=== PATIENT | female | born 2000 | race African-American/Black ===

== ENCOUNTER 2019-10-25 10:21 | Emergency (ER) | payer BC ==
[2019-10-25 10:30] VITALS: BP 133/75; PULSE 77; TEMP 98.3; BMI 38.0
[2019-10-25] MEDS ORDERED: SODIUM CHLORIDE 1,000 ML IV STA (11:18)
[2019-10-25] MEDS ORDERED: METOCLOPRAMIDE HCL INJECTION 10 MG/2 ML VIAL IVPB ONE (11:18)
[2019-10-25] MEDS ORDERED: ACETAMINOPHEN 1000 MG/100 ML VIAL (NON FORMULARY) IVPB ONE (11:18)
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
[2019-10-25] MEDS ORDERED: METOCLOPRAMIDE HCL INJECTION 10 MG/2 ML VIAL ONE (11:32)
[2019-10-25] MEDS ORDERED: ACETAMINOPHEN INJECTION 100 ML IVPB ONE (11:32)
== END 2019-10-25 13:56 | disposition home or self-care (01) ==
LOC: JERFT 10:21
PROC: 3E0333Z Introduction of Anti-inflammatory into Peripheral Vein, Percutaneous Approach (ICD-10-PCS; principal; 2019-10-25)
PROC: 3E033GC Introduction of Other Therapeutic Substance into Peripheral Vein, Percutaneous Approach (ICD-10-PCS; 2019-10-25)
PROC: 3E0337Z Introduction of Electrolytic and Water Balance Substance into Peripheral Vein, Percutaneous Approach (ICD-10-PCS; 2019-10-25)
DX: R51 Headache (principal); R21 Rash and other nonspecific skin eruption
CPT/HCPCS: 99284-25; J0131

== ENCOUNTER 2020-04-10 12:35 | Emergency (ER) | payer BC ==
[2020-04-10 13:05] VITALS: TEMP 97.8; BMI 34.9
[2020-04-10] MEDS ORDERED: ACETAMINOPHEN 1000 MG/100 ML VIAL (NON FORMULARY) IVPB ONE (13:38)
[2020-04-10] MEDS ORDERED: METOCLOPRAMIDE HCL INJECTION 10 MG/2 ML VIAL IVPB ONE (13:38)
[2020-04-10] MEDS ORDERED: SODIUM CHLORIDE 1,000 ML IV STA (13:38)
[2020-04-10] MEDS ORDERED: MECLIZINE HCL 25 MG TABLET (FP) PO ONE (13:39)
[2020-04-10] MEDS ORDERED: METOCLOPRAMIDE HCL INJECTION 10 MG/2 ML VIAL ONE (13:42)
[2020-04-10] MEDS ORDERED: ACETAMINOPHEN INJECTION 100 ML IVPB ONE (13:42)
[2020-04-10] MEDS ORDERED: MECLIZINE HCL 25 MG TABLET (FP) ONE (14:50)
[2020-04-10 16:23] VITALS: BP 128/70; PULSE 75
== END 2020-04-10 16:22 | disposition home or self-care (01) ==
LOC: JER 12:35
PROC: 3E0333Z Introduction of Anti-inflammatory into Peripheral Vein, Percutaneous Approach (ICD-10-PCS; principal; 2020-04-10)
PROC: 3E033GC Introduction of Other Therapeutic Substance into Peripheral Vein, Percutaneous Approach (ICD-10-PCS; 2020-04-10)
PROC: 3E033GC Introduction of Other Therapeutic Substance into Peripheral Vein, Percutaneous Approach (ICD-10-PCS; 2020-04-10)
PROC: 3E0337Z Introduction of Electrolytic and Water Balance Substance into Peripheral Vein, Percutaneous Approach (ICD-10-PCS; 2020-04-10)
DX: R51.9 Headache, unspecified (principal)
CPT/HCPCS: 99284-25; J0131

== ENCOUNTER 2020-10-08 12:44 | Emergency (ER) | payer BC, OTHER ==
[2020-10-08 12:52] VITALS: BP 122/70; PULSE 79; TEMP 99.3; BMI 36.5
[2020-10-08] MEDS ORDERED: METOCLOPRAMIDE HCL INJECTION 10 MG/2 ML VIAL IVPB ONE (13:53)
[2020-10-08] MEDS ORDERED: SODIUM CHLORIDE 1,000 ML IV STA (13:53)
[2020-10-08] MEDS ORDERED: KETOROLAC TROMETHAMINE 15 MG/ML VIAL IVPUSH ONE (13:53)
[2020-10-08] MEDS ORDERED: KETOROLAC TROMETHAMINE 15 MG/ML VIAL ONE (14:12)
[2020-10-08] MEDS ORDERED: METOCLOPRAMIDE HCL INJECTION 10 MG/2 ML VIAL ONE (14:12)
[2020-10-08] MEDS ORDERED: ACETAMINOPHEN 1000 MG/100 ML VIAL IVPB ONE (16:53)
[2020-10-08] MEDS ORDERED: DEXAMETHASONE SOD PHOSPHATE 10 MG/1 ML VIAL IVPUSH ONE (16:53)
[2020-10-08] MEDS ORDERED: DEXAMETHASONE SOD PHOSPHATE 10 MG/1 ML VIAL ONE (17:13)
[2020-10-08] MEDS ORDERED: ACETAMINOPHEN INJECTION 100 ML IVPB ONE (17:13)
== END 2020-10-08 18:55 | disposition home or self-care (01) ==
LOC: JER 12:44
PROC: 3E0333Z Introduction of Anti-inflammatory into Peripheral Vein, Percutaneous Approach (ICD-10-PCS; principal; 2020-10-08)
PROC: 3E033GC Introduction of Other Therapeutic Substance into Peripheral Vein, Percutaneous Approach (ICD-10-PCS; 2020-10-08)
PROC: 3E033GC Introduction of Other Therapeutic Substance into Peripheral Vein, Percutaneous Approach (ICD-10-PCS; 2020-10-08)
PROC: 3E0333Z Introduction of Anti-inflammatory into Peripheral Vein, Percutaneous Approach (ICD-10-PCS; 2020-10-08)
PROC: 3E033GC Introduction of Other Therapeutic Substance into Peripheral Vein, Percutaneous Approach (ICD-10-PCS; 2020-10-08)
PROC: 3E0337Z Introduction of Electrolytic and Water Balance Substance into Peripheral Vein, Percutaneous Approach (ICD-10-PCS; 2020-10-08)
DX: G43.909 Migraine, unspecified, not intractable, without status migrainosus (principal)
CPT/HCPCS: 70450-TC; 96361; 96374; 96375; 99284-25; J0131; J1100

== ENCOUNTER 2021-03-27 20:27 | Emergency (ER) | payer OTHER ==
[2021-03-27 20:43] VITALS: BP 143/58; PULSE 102; TEMP 98.1; BMI 36.5
[2021-03-29 20:07] LABS: SARS-CoV-2 NAA Not Detected (Not Detected)
== END 2021-03-27 21:47 | disposition home or self-care (01) ==
LOC: JER 20:27
DX: J11.1 Influenza due to unidentified influenza virus with other respiratory manifestations (principal); Z11.52 Encounter for screening for COVID-19
CPT/HCPCS: 99283-25; C9803; U0003; U0005

== ENCOUNTER 2022-05-09 18:30 | Emergency (ER) | payer OTHER ==
[2022-05-09 18:36] VITALS: BP 128/82; PULSE 90; RESP 18; TEMP 98.4; BMI 38.0
== END 2022-05-09 21:06 | disposition home or self-care (01) ==
LOC: JER 18:30 → JERFT 18:30
PROC: 0H98XZZ Drainage of Buttock Skin, External Approach (ICD-10-PCS; principal; 2022-05-09)
DX: O99.891 Other specified diseases and conditions complicating pregnancy (principal); L02.31 Cutaneous abscess of buttock; Z3A.36 36 weeks gestation of pregnancy
CPT/HCPCS: 99282-25

== ENCOUNTER 2022-05-31 12:35 | Inpatient (IN) | payer OTHER ==
[2022-05-31 14:13] VITALS: BMI 43.7
[2022-05-31 14:25] LABS: BASO % 0.1 % (0-2.0); EOS % 0.2 % (0-4.5); HEMATOCRIT 38.9 % (32.4-45.2); HEMOGLOBIN 13.2 GM/dL (10.7-15.3); LYMPH % 12.1 % (8-40); MCH 29.8 pg (25.7-33.7); MEAN CELL VOLUME 87.9 fl (80-96); MEAN PLT VOLUME 8.2 fl (7.5-11.1); MONO % 5.3 % (3.8-10.2); NEUT % 82.3 % (42.8-82.8); PLATELET COUNT 311 10^3/uL (134-434); RBC 4.43 M/mm3 (3.60-5.2); RDW 14.2 % (11.6-15.6); WHITE BLOOD COUNT 13.9 K/mm3 (4.0-10.0)
[2022-05-31 14:34] LABS: INR 0.97 (0.83-1.09); PROTHROMBIN TIME (PATIENT) 11.3 SEC (9.7-13.0)
[2022-05-31 14:36] LABS: ACTIVATED PTT 28.5 SECONDS (25.2-36.5)
[2022-05-31 14:48] LABS: CALCIUM 9.3 mg/dL (8.5-10.1)
[2022-05-31 14:52] LABS: BLOOD UREA NITROGEN 11.4 mg/dL (7-18); CREATININE 0.7 mg/dL (0.55-1.3)
[2022-05-31] MEDS ORDERED: ELECTROLYTE-148 SOLN 1,000 ML IV SCH (15:00)
[2022-05-31] MEDS ORDERED: OXYTOCIN 30 UNITS in 0.9% NS 30 UNIT/500 ML INFUS.BAG IVPB ONE (16:30)
[2022-05-31] MEDS ORDERED: OXYTOCIN 30 UNITS in 0.9% NS 30 UNIT/500 ML INFUS.BAG IVPB SCH (17:45)
[2022-05-31] MEDS ORDERED: FENTANYL/BUPIVACAINE/NS/PF - PCEA - 50 ML DISP.SYRIN EP ONE (19:25)
[2022-05-31] MEDS ORDERED: NALOXONE HCL 0.4 MG/ML VIAL IVPUSH PRN (20:30)
[2022-05-31] MEDS ORDERED: FENTANYL/BUPIVACAINE/NS/PF - PCEA - 50 ML DISP.SYRIN EP SCH (20:30)
[2022-05-31] MEDS ORDERED: ELECTROLYTE-148 SOLN 500 ML IV ONE (23:45)
[2022-06-01] MEDS ORDERED: LIDO 2%/EPI 1:200000 PRESRVFRE (20 ML SDVIAL) ONE (00:01)
[2022-06-01] MEDS ORDERED: OXYTOCIN 30 UNITS in 0.9% NS 30 UNIT/500 ML INFUS.BAG IVPB ONE (00:01)
[2022-06-01] MEDS ORDERED: FENTANYL CITRATE/PF 50 MCG/ML VIAL ONE (00:02)
[2022-06-01] MEDS ORDERED: ONDANSETRON 4 MG/2 ML VIAL ONE (00:02)
[2022-06-01] MEDS ORDERED: ceFAZolin SODIUM 1 GM VIAL ONE (00:02)
[2022-06-01] MEDS ORDERED: METOCLOPRAMIDE HCL INJECTION 10 MG/2 ML VIAL ONE (00:02)
[2022-06-01] MEDS ORDERED: ELECTROLYTE-148 SOLN 1,000 ML IV SCH (00:15)
[2022-06-01] MEDS ORDERED: DEXAMETHASONE SOD PHOSPHATE 4 MG/1 ML VIAL ONE (00:34)
[2022-06-01] MEDS ORDERED: morphine SULFATE/PF 1 MG/2 ML (2cc Syringe - QUVA) EP ONE (00:40)
[2022-06-01] MEDS ORDERED: KETOROLAC TROMETHAMINE 30 MG/1 ML VIAL ONE (00:52)
[2022-06-01] MEDS ORDERED: ACETAMINOPHEN 325 MG TABLET (FP) PO PRN (01:10)
[2022-06-01] MEDS ORDERED: METHYLERGONOVINE MALEATE 0.2 MG/1 ML AMP IM PRN (01:10)
[2022-06-01] MEDS ORDERED: IBUPROFEN 800 MG/8 ML IJ IVPB PRN (01:10)
[2022-06-01] MEDS ORDERED: OXYTOCIN 20 UNITS in 0.9% NS 20 UNIT/1,000 ML INFUS.BAG IV SCH (01:15)
[2022-06-01] MEDS ORDERED: ONDANSETRON 4 MG/2 ML VIAL IVPUSH PRN (01:32)
[2022-06-01] MEDS ORDERED: OXYTOCIN 20 UNITS in 0.9% NS 20 UNIT/1,000 ML INFUS.BAG IV ONE (02:59)
[2022-06-01] MEDS: FERROUS SO4 325 MG TABLET (FP) PO SCH ×2 (10:59→21:02)
[2022-06-01] MEDS: PRENATAL VITAMINS W/ FOLIC ACID TABLET (FP) PO SCH (10:59)
[2022-06-01 19:56] VITALS: RESP 18
[2022-06-01] MEDS: SENNOSIDES/DOCUSATE COMBO (SENNA PLUS) TABLET (UD) PO PRN (21:02)
[2022-06-01] MEDS: SIMETHICONE 80 MG TAB.CHEW (FP) PO PRN (21:02)
[2022-06-01] MEDS: oxyCODONE HCL 5 MG TABLET PO PRN (21:02)
[2022-06-02] MEDS ORDERED: BISACODYL 10 MG SUPP.RECT RC PRN (01:10)
[2022-06-02 10:18] LABS: BASO % 0.1 % (0-2.0); EOS % 0.1 % (0-4.5); HEMATOCRIT 35.8 % (32.4-45.2); HEMOGLOBIN 11.9 GM/dL (10.7-15.3); LYMPH % 11.6 % (8-40); MCH 29.5 pg (25.7-33.7); MCHC 33.2 g/dl (32.0-36.0); MEAN CELL VOLUME 88.7 fl (80-96); MONO % 5.3 % (3.8-10.2); NEUT % 82.9 % (42.8-82.8); PLATELET COUNT 287 10^3/uL (134-434); RBC 4.04 M/mm3 (3.60-5.2); RDW 14.5 % (11.6-15.6); WHITE BLOOD COUNT 16.5 K/mm3 (4.0-10.0)
[2022-06-02] MEDS: FERROUS SO4 325 MG TABLET (FP) PO SCH ×2 (10:50→21:35)
[2022-06-02] MEDS: PRENATAL VITAMINS W/ FOLIC ACID TABLET (FP) PO SCH (10:50)
[2022-06-02] MEDS: IBUPROFEN 600 MG TABLET (FP) PO PRN ×2 (14:24→21:35)
[2022-06-02] MEDS: SIMETHICONE 80 MG TAB.CHEW (FP) PO PRN (21:35)
[2022-06-02] MEDS: SENNOSIDES/DOCUSATE COMBO (SENNA PLUS) TABLET (UD) PO PRN (21:36)
[2022-06-03] MEDS: PRENATAL VITAMINS W/ FOLIC ACID TABLET (FP) PO SCH (10:01)
[2022-06-03] MEDS: FERROUS SO4 325 MG TABLET (FP) PO SCH ×2 (10:01→21:24)
[2022-06-03] MEDS: IBUPROFEN 600 MG TABLET (FP) PO PRN ×2 (11:56→18:22)
[2022-06-03] MEDS: SIMETHICONE 80 MG TAB.CHEW (FP) PO PRN ×2 (18:22→21:24)
[2022-06-03] MEDS: oxyCODONE HCL 5 MG TABLET PO PRN (21:24)
[2022-06-03] MEDS: SENNOSIDES/DOCUSATE COMBO (SENNA PLUS) TABLET (UD) PO PRN (21:24)
[2022-06-04] MEDS: oxyCODONE HCL 5 MG TABLET PO PRN (02:41)
[2022-06-04] MEDS: SIMETHICONE 80 MG TAB.CHEW (FP) PO PRN (02:41)
[2022-06-04] MEDS: IBUPROFEN 600 MG TABLET (FP) PO PRN (07:30)
[2022-06-04 07:47] LABS: BASO % 0.2 % (0-2.0); EOS % 3.3 % (0-4.5); HEMATOCRIT 34.6 % (32.4-45.2); HEMOGLOBIN 11.7 GM/dL (10.7-15.3); LYMPH % 30.9 % (8-40); MCH 30.2 pg (25.7-33.7); MCHC 33.7 g/dl (32.0-36.0); MEAN CELL VOLUME 89.7 fl (80-96); MEAN PLT VOLUME 7.6 fl (7.5-11.1); MONO % 5.4 % (3.8-10.2); NEUT % 60.2 % (42.8-82.8); PLATELET COUNT 345 10^3/uL (134-434); RBC 3.85 M/mm3 (3.60-5.2); RDW 14.4 % (11.6-15.6); WHITE BLOOD COUNT 7.9 K/mm3 (4.0-10.0)
[2022-06-04] MEDS: FERROUS SO4 325 MG TABLET (FP) PO SCH (09:15)
[2022-06-04] MEDS: PRENATAL VITAMINS W/ FOLIC ACID TABLET (FP) PO SCH (09:15)
[2022-06-04 09:44] VITALS: TEMP 97.6
[2022-06-04 09:48] VITALS: BP 136/86; PULSE 64
== END 2022-06-04 12:30 | disposition home or self-care (01) | DRG 540 ==
LOC: JDEL 12:35 → JLDR 14:48 → J3W 06-01 03:10
PROVIDERS: ADMIT Obstetrics & Gynecology; ATTEND Obstetrics & Gynecology
PROC: 3E033VJ Introduction of Other Hormone into Peripheral Vein, Percutaneous Approach (ICD-10-PCS; 2022-05-31)
PROC: 10907ZC Drainage of Amniotic Fluid, Therapeutic from Products of Conception, Via Natural or Artificial Opening (ICD-10-PCS; 2022-05-31)
PROC: 10D00Z1 Extraction of Products of Conception, Low, Open Approach (ICD-10-PCS; principal; 2022-06-01)
DX: O77.8 Labor and delivery complicated by other evidence of fetal stress (principal); O76 Abnormality in fetal heart rate and rhythm complicating labor and delivery; O99.214 Obesity complicating childbirth; E66.01 Morbid (severe) obesity due to excess calories; O48.0 Post-term pregnancy; Z3A.40 40 weeks gestation of pregnancy; Z37.0 Single live birth
CPT/HCPCS: 36415; 59025; 80048; 85025; 85610; 85730; 86780; 86850; 86900; 86901; 88307-TC; C9803-CS; U0003; U0005

== ENCOUNTER 2022-06-26 21:53 | Emergency (ER) | payer OTHER ==
[2022-06-26 22:12] VITALS: BP 130/68; PULSE 78; RESP 16; TEMP 98.3; BMI 36.8
[2022-06-26] MEDS ORDERED: ACETAMINOPHEN 1000 MG/100 ML BAG IVPB ONE (23:56)
[2022-06-27] MEDS ORDERED: ACETAMINOPHEN 500 MG TABLET (FP) ONE (01:34)
[2022-06-27] MEDS ORDERED: ACETAMINOPHEN 500 MG TABLET (FP) PO ONE (01:43)
[2022-06-27 01:47] LABS: BASO % 0.2 % (0-2.0); EOS % 1.3 % (0-4.5); HEMATOCRIT 38.5 % (32.4-45.2); LYMPH % 27.7 % (8-40); MCH 29.5 pg (25.7-33.7); MCHC 33.8 g/dl (32.0-36.0); MEAN CELL VOLUME 87.2 fl (80-96); MEAN PLT VOLUME 7.5 fl (7.5-11.1); MONO % 4.4 % (3.8-10.2); NEUT % 66.4 % (42.8-82.8); PLATELET COUNT 307 10^3/uL (134-434); RBC 4.41 M/mm3 (3.60-5.2); RDW 14.5 % (11.6-15.6); WHITE BLOOD COUNT 8.7 K/mm3 (4.0-10.0)
[2022-06-27 02:36] LABS: CALCIUM 8.8 mg/dL (8.5-10.1)
[2022-06-27 02:37] LABS: ALBUMIN 3.5 g/dl (3.4-5.0); BLOOD UREA NITROGEN 9.5 mg/dL (7-18)
[2022-06-27 02:40] LABS: CREATININE 1.1 mg/dL (0.55-1.3)
[2022-06-27 02:42] LABS: BILIRUBIN,TOTAL 0.2 mg/dL (0.2-1); TOT PROT 7.2 g/dl (6.4-8.2)
[2022-06-27] MEDS ORDERED: AMOX TR/POT CLAV 875MG/125MG TABLETS (FP) PO ONE (03:01)
[2022-06-27] MEDS ORDERED: AMOX TR/POT CLAV 875MG/125MG TABLETS (FP) ONE (03:04)
== END 2022-06-27 03:13 | disposition home or self-care (01) ==
LOC: JER 21:53
DX: L03.311 Cellulitis of abdominal wall (principal); R10.32 Left lower quadrant pain
CPT/HCPCS: 36415; 80053; 84702; 85025; 99283-25

== ENCOUNTER 2023-09-05 07:04 | Emergency (ER) | payer OTHER ==
[2023-09-05 07:23] VITALS: BP 128/73; PULSE 68; RESP 18; TEMP 98.5; BMI 38.0
[2023-09-05] MEDS ORDERED: METOCLOPRAMIDE HCL INJECTION 10 MG/2 ML VIAL ONE (08:41)
[2023-09-05] MEDS ORDERED: ACETAMINOPHEN INJECTION 100 ML IVPB ONE (08:41)
[2023-09-05] MEDS: SODIUM CHLORIDE 0.9% 500 ML INFUS.BAG IV ONE (09:02)
[2023-09-05] MEDS: METOCLOPRAMIDE HCL INJECTION 10 MG/2 ML VIAL IVPB ONE (09:03)
[2023-09-05] MEDS: ACETAMINOPHEN 1000 MG/100 ML BAG IVPB ONE (09:03)
[2023-09-05 09:08] LABS: BASO % 0.3 % (0-2.0); EOS % 1.4 % (0-4.5); HEMATOCRIT 39.6 % (32.4-45.2); MCH 29.6 pg (25.7-33.7); MCHC 32.8 g/dl (32.0-36.0); MEAN CELL VOLUME 90.3 fl (80-96); MEAN PLT VOLUME 7.4 fl (7.5-11.1); MONO % 3.7 % (3.8-10.2); NEUT % 42.6 % (42.8-82.8); PLATELET COUNT 302 10^3/uL (134-434); RBC 4.38 M/mm3 (3.60-5.2); RDW 13.9 % (11.6-15.6)
[2023-09-05 09:21] LABS: CHLORIDE 110 mmol/L (98-107); POTASSIUM 4.1 mmol/L (3.5-5.1); SODIUM 143 mmol/L (136-145)
[2023-09-05 09:25] LABS: ANION GAP 5 mmol/L (4-13); BLOOD UREA NITROGEN 16.6 mg/dL (7-18); CO2 28 mmol/L (21-32); GLUCOSE,RANDOM 98 mg/dL (74-106)
[2023-09-05 09:28] LABS: CREATININE 1.2 mg/dL (0.55-1.3); SGOT/AST 17 U/L (15-37); SGPT/ALT 20 U/L (13-61)
[2023-09-05 09:30] LABS: BILIRUBIN,TOTAL 0.2 mg/dL (0.2-1); TOT PROT 7.5 g/dl (6.4-8.2)
[2023-09-05 09:31] LABS: ALK PHOS 63 U/L (45-117)
[2023-09-05 09:53] LABS: ERYTHROCYTE SEDIMENTATION RATE 6 mm/hr (0-20)
== END 2023-09-05 11:41 | disposition home or self-care (01) ==
LOC: JER 07:04
PROC: 3E033NZ Introduction of Analgesics, Hypnotics, Sedatives into Peripheral Vein, Percutaneous Approach (ICD-10-PCS; principal; 2023-09-05)
PROC: 3E033GC Introduction of Other Therapeutic Substance into Peripheral Vein, Percutaneous Approach (ICD-10-PCS; 2023-09-05)
DX: R51.9 Headache, unspecified (principal)
CPT/HCPCS: 36415; 70450-TC; 70496-TC; 80053; 84703; 85025; 85651; 86140; 99284-25; J0131; Q9967

== ENCOUNTER 2024-02-24 15:41 | Emergency (ER) | payer OTHER ==
[2024-02-24 15:51] VITALS: BP 129/81; PULSE 80; RESP 18; TEMP 98.5; BMI 38.0
[2024-02-24 16:37] LABS: EPI CELLS 11 /uL (0-25.1); HYALINE CASTS 1 /uL (0-3.1); PH,URINE 5.5 (5.0-8.0); URINE APPEARANCE CLEAR; URINE BACTERIA 94 /uL (0-1359); URINE BILIRUBIN NEGATIVE (NEGATIVE); URINE COLOR YELLOW; URINE GLUCOSE (UA) NEGATIVE (NEGATIVE); URINE KETONE TRACE (NEGATIVE); URINE LEUK ESTERASE NEGATIVE (NEGATIVE); URINE NITRITE NEGATIVE (NEGATIVE); URINE PROTEIN NEGATIVE (NEGATIVE); URINE RBC 10 /uL (0-23.9); URINE UROBILINOGEN 0.2 mg/dL (0.2-1.0); URINE WBC 5 /uL (0-25.8)
== END 2024-02-24 18:10 | disposition home or self-care (01) ==
LOC: JER 15:41
DX: N93.9 Abnormal uterine and vaginal bleeding, unspecified (principal)
CPT/HCPCS: 81003; 84703; 87086; 99283-25